=== PATIENT | male | born 1935 | race Caucasian/White ===

== ENCOUNTER → 2017-05-06 | Outpatient (CLI) | payer MEDICARE, OTHER ==
--- NOTE | 2017-05-06 12:51 | PCVCIMAG ---
APPROVED REPORT Exam: Stress Echocardiogram Indication: Aortic Valve Stenosis, Hypertension, Hyperlipidemia, Fam hx CAD Patient Location: Echo lab Stress Nurse: Tammy Canchola RN Status: routine Ht: 5 ft 11 in HR: 64 bpm BP: 130/82 mmHg Rhythm: NSR Procedure The patient underwent an Exercise Stress Test using the Edi Protocol. Blood pressure, heart rate, and EKG were monitored. An Echocardiogram was performed by machines technician in four stages in quad fashion. At peak stress, four selected images were obtained and placed side by side with resting images for comparison. Stress Test Details Stress Test: Exercise stress testing was performed using a Edi protocol. HR Resting HR: 64 bpmMax Heart Rate (APMHR): 140 bpm Max HR Achieved: 122 bpmTarget HR (85% APMHR): 119 bpm % of APMHR: 87 Recovery HR: 71 bpm HR response to stress: Normal HR response to stress BP Resting BP: 130/82 mmHg Max BP: 188/82 mmHg Recovery BP: 158/82 mmHg ECG Resting ECG: Sinus Rhythm Stress ECG: Sinus Rhythm Arrhythmia: Occasional isolated multi-focal PVCs Recovery ECG: Sinus Rhythm Recovery Arrhythmia: Occasional isolated PVCs Clinical Reason for Termination: Maximal effort Stress Symptoms: Dyspnea Exercise duration: 9 min 21 sec Highest Stage Achieved: Stage 4: 4.2 mph at 16% grade. Exercise capacity: 11.2 METs Overall Exercise Capacity for Age: Good Pre-Stress Echo The resting Echocardiogram showed normal left ventricular contractility with an estimated Ejection Fraction of about 50%. Normal wall motion in all segments on baseline images. Post-Stress Echo The stress Echocardiogram showed normal left ventricular contractility with an estimated Ejection Fraction of about 60%. Normal augmentation of wall motion in all segments on post stress images. Clinical No clinical or ECG evidence for ischemia. Conclusion Clinical Response: Non-ischemic Exercise Capacity: Superior Stress ECG Response: Non-ischemic Stress Echo Images: Non-ischemic Moderate aortic stenosis, unchanged from previous studies. Aortic valve area 1.0 cm2, with maximal pressure gradient 25 mmHg and mean gradient 14 mmHg. Moderate-severe aortic sclerosis present. Mild-moderate mitral regurgitation present. Other Information Study Quality: Adequate <Conclusion> Moderate aortic stenosis, unchanged from previous studies. Aortic valve area 1.0 cm2, with maximal pressure gradient 25 mmHg and mean gradient 14 mmHg. Moderate-severe aortic sclerosis present. Mild-moderate mitral regurgitation present.
== END | disposition home or self-care (01) ==
LOC: PCVCIMAG 10:02
PROVIDERS: ATTEND Internal Medicine Cardiovascular Disease
DX: I08.0 Rheumatic disorders of both mitral and aortic valves (principal); I25.10 Atherosclerotic heart disease of native coronary artery without angina pectoris; I10 Essential (primary) hypertension; E78.5 Hyperlipidemia, unspecified
CPT/HCPCS: 93325; 93351

== ENCOUNTER → 2018-03-10 | Outpatient (CLI) | payer MEDICARE | END | disposition home or self-care (01) | LOC: PCVCCLINIC 15:21 | PROVIDERS: ATTEND Internal Medicine Cardiovascular Disease | DX: M25.559 Pain in unspecified hip (principal); I35.0 Nonrheumatic aortic (valve) stenosis; I10 Essential (primary) hypertension; I77.9 Disorder of arteries and arterioles, unspecified; E78.00 Pure hypercholesterolemia, unspecified; F10.10 Alcohol abuse, uncomplicated; R94.31 Abnormal electrocardiogram [ECG] [EKG]; Z79.899 Other long term (current) drug therapy | CPT/HCPCS: 80061; 93005; G0463 ==

== ENCOUNTER → 2018-07-09 | Outpatient (CLI) | payer MEDICARE ==
--- NOTE | 2018-07-09 16:26 | PCVCIMAG ---
APPROVED REPORT Patient Location: Out-Patient Indications Stenosis Doppler Spectral Velocity Analysis PSV / EDVPSV / EDV ECA (R) 94 / 12 cm/sECA (L) 107 / 7 cm/s dICA (R) 52 / 15 cm/sdICA (L) 62 / 18 cm/s Jose Antonio (R) 52 / 10 cm/smICA (L) 67 / 16 cm/s pICA (R) 51 / 10 cm/spICA (L) 75 / 11 cm/s Bulb (R) 46 / 12 cm/sBulb (L) 68 / 11 cm/s dCCA (R) 76 / 8 cm/sdCCA (L) 69 / 10 cm/s mCCA (R) 73 / 9 cm/smCCA (L) 83 / 8 cm/s Vert (R) 76 / 5 cm/sVert (L) 55 / 12 cm/s ICA/CCA 0.68 ICA/CCA 1.09 Findings The right carotid bulb has moderate plaque. The right proximal internal carotid artery shows <40% stenosis. The right common carotid artery shows no significant stenosis. The right external carotid artery shows no significant stenosis. The left carotid bulb has moderate plaque. The left proximal internal carotid artery shows <40% stenosis. The left common carotid artery shows no significant stenosis. The left external carotid artery shows no significant stenosis. Conclusion 1. Right internal carotid artery stenosis (<40%) 2. Left internal carotid artery stenosis (<40%) 3. Antegrade vertebral flow
--- NOTE | 2018-07-09 16:28 | PCVCIMAG ---
APPROVED REPORT Study performed: 07/09/2018 14:57:41 EXAM: Comprehensive 2D, Doppler, and color-flow Echocardiogram Patient Location: Echo lab Status: routine BSA: 2.01 HR: 50 bpmBP: 150/72 mmHg Rhythm: Bradycardia Other Information Study Quality: Good Risk Factors: Cardiac Risk Factors: HTN, Hyperlipidemia Indications Aortic Valve Disease Hypertension/HDD 2D Dimensions IVSd: 13.93 (7-11mm)LVOT Diam: 20.73 (18-24mm) LVDd: 44.99 mm PWd: 11.70 (7-11mm)Ascending Ao: 37.58 (22-36mm) LVDs: 35.25 (25-40mm) Left Atrium: 41.16 (27-40mm) Aortic Root: 34.63 mm LV Single Plane 4CH: 56.78 % Volumes Left Atrial Volume (Systole) Single Plane 4CH: 63.80 mLSingle Plane 2CH: 78.57 mL LA ESV Index: 36.00 mL/m2 Aortic Valve AoV Peak Tobin.: 2.63 m/s AO Peak Gr.: 27.66 mmHgLVOT Max P.27 mmHg AO Mean Gr.: 15.77 mmHgLVOT Mean P.38 mmHg AO V2 Mean: 1.90 m/sLVOT Max V: 0.75 m/s AO V2 VTI: 65.20 cmLVOT Mean V: 0.56 m/s MARS (VTI): 1.08 [id number] V1 VTI: 20.94 cm MARS Vmax: 0.97 cm2 AI Vmax: 4.41 m/sSV (LVOT): 70.63 mL AI Mitchell: 1.93 m/s2 AI PHT: 663.20 ms Mitral Valve E/A Ratio: 0.7 MV Decel. Time: 393.54 ms MV E Max Tobin.: 0.69 m/s MV A Tobin.: 0.93 m/s IVRT: 124.57 ms TDI E/Lateral E': 11.50E/Medial E': 8.63 Medial E' Tobin.: 0.08 m/s Lateral E' Tobin.: 0.06 m/s Pulmonary Valve PV Peak Gr.: 1.13 mmHg Pulmonary Vein P Vein S: 0.41 m/sP Vein A: 0.34 m/s P Vein D: 0.47 m/sP Vein A Dur.: 131.5 msec P Vein S/D Ratio: 0.87 Tricuspid Valve TR Peak Tobin.: 2.93 m/s TR Peak Gr.: 34.23 mmHg Left Ventricle The left ventricle is normal size. There is normal LV segmental wall motion. Mild concentric left ventricular hypertrophy. Left ventricular systolic function is normal. The left ventricular ejection fraction is within the normal range. LVEF is >55%. The left ventricular diastolic function is normal. Right Ventricle The right ventricle is normal size. The right ventricular systolic function is normal. Atria Left atrium is mildly dilated. The right atrium size is normal. Aortic Valve Aortic valve is calcified. peak gradient is 28mmHg. Mean gradient is 18mmhg. Aortic valve area is 1.0cm2. Mild aortic regurgitation. There is no aortic valvular stenosis. Mitral Valve The mitral valve is normal in structure. Moderate mitral regurgitation. No evidence of mitral valve stenosis. Tricuspid Valve The tricuspid valve is normal in structure. Trace tricuspid regurgitation. Pulmonary artery pressure is 41mmHg. Pulmonic Valve The pulmonary valve is normal in structure. There is no pulmonic valvular regurgitation. Great Vessels The aortic root is normal in size. IVC is normal in size and collapses >50% with inspiration. Pericardium There is no pericardial effusion. <Conclusion> The left ventricle is normal size. Mild concentric left ventricular hypertrophy. LVEF is >55%. The left ventricular diastolic function is normal. The right ventricle is normal size. Left atrium is mildly dilated. Left atrium is mildly dilated. Aortic valve is calcified. peak gradient is 28mmHg. Mean gradient is 18mmhg. Aortic valve area is 1.0cm2. Mild aortic regurgitation. Mild aortic regurgitation. Moderate mitral regurgitation. Trace tricuspid regurgitation. Pulmonary artery pressure is 41mmHg. The aortic root is normal in size. There is no pericardial effusion.
== END | disposition home or self-care (01) ==
LOC: PCVCIMAG 14:08
PROVIDERS: ATTEND Internal Medicine
DX: I08.0 Rheumatic disorders of both mitral and aortic valves (principal); I65.23 Occlusion and stenosis of bilateral carotid arteries; I10 Essential (primary) hypertension; E78.5 Hyperlipidemia, unspecified; R06.02 Shortness of breath; G47.30 Sleep apnea, unspecified
CPT/HCPCS: 36415; 80061; 93005; 93306; 93880; G0463

== ENCOUNTER → 2019-01-15 | Outpatient (CLI) | payer MEDICARE | END | disposition home or self-care (01) | LOC: PCVCCLINIC 14:00 | PROVIDERS: ATTEND Internal Medicine Cardiovascular Disease | DX: I35.0 Nonrheumatic aortic (valve) stenosis (principal); E78.5 Hyperlipidemia, unspecified; I10 Essential (primary) hypertension; I65.23 Occlusion and stenosis of bilateral carotid arteries; R53.83 Other fatigue | CPT/HCPCS: 93005; G0463 ==

== ENCOUNTER → 2019-05-04 | Outpatient (CLI) | payer MEDICARE ==
--- NOTE | 2019-05-04 16:40 | PCVCIMAG ---
APPROVED REPORT Study performed: 05/04/2019 15:22:56 Exam: Stress Echocardiogram Indication: Hyperlipidemia, Hypertension, Aortic Stenosis Patient Location: Echo lab Stress Nurse: Tammy Canchola RN Status: routine Ht: 5 ft 9 in HR: 68 bpm BP: 132/74 mmHg Rhythm: NSR Medical History Medical History: Aortic Stenosis Exercise History: Physically active Procedure The patient underwent an Exercise Stress Test using the Edi Protocol. Blood pressure, heart rate, and EKG were monitored. An Echocardiogram was performed by health information systems technician in four stages in quad fashion. At peak stress, four selected images were obtained and placed side by side with resting images for comparison. Stress Test Details Stress Test: Exercise stress testing was performed using a Edi protocol. HR Resting HR: 68 bpmMax Heart Rate (APMHR): 138 bpm Max HR Achieved: 203 bpmTarget HR (85% APMHR): 117 bpm % of APMHR: 147 Recovery HR: 73 bpm HR response to stress: Normal HR response to stress BP Resting BP: 132/74 mmHg Max BP: 188/70 mmHg Recovery BP: 132/74 mmHg BP response to stress: Normal blood pressure response to stress. ECG Resting ECG: Sinus Rhythm Stress ECG: Sinus Rhythm ST Change: SVT Recovery ECG: SVT Recovery ST Change: SVT Clinical Reason for Termination: Maximal effort Exercise duration: 9 min 22 sec Highest Stage Achieved: Stage 4: 4.2 mph at 16% grade. Exercise capacity: 11.30 METs Overall Exercise Capacity for Age: Good Pre-Stress Echo The resting Echocardiogram showed normal left ventricular contractility with an estimated Ejection Fraction of about 55-60%. Normal wall motion in all segments on baseline images. Post-Stress Echo The stress Echocardiogram showed normal left ventricular contractility with an estimated Ejection Fraction of about 60-65%. Normal augmentation of wall motion in all segments on post stress images. Clinical No clinical or ECG evidence for ischemia. Conclusion Clinical Response: Non-ischemic Exercise Capacity: Superior Stress ECG Response: Non-ischemic Stress Echo Images: Non-ischemic The left ventricle is normal in size and wall thickness in both the rest and stress images. Peak aortic gradient 30mmHg. Mean gradient 19mmHg. Aortic valve area is 1.2cm2. Mild aortic insufficiency. Mild tricuspid and mitral regurgitation. Pulmonary artery pressure 37mmHg. <Conclusion> The left ventricle is normal in size and wall thickness in both the rest and stress images. Peak aortic gradient 30mmHg. Mean gradient 19mmHg. Aortic valve area is 1.2cm2. Mild aortic insufficiency. Mild tricuspid and mitral regurgitation. Pulmonary artery pressure 37mmHg.
== END | disposition home or self-care (01) ==
LOC: PCVCIMAG 15:01
PROVIDERS: ATTEND Internal Medicine Cardiovascular Disease
DX: I08.3 Combined rheumatic disorders of mitral, aortic and tricuspid valves (principal); I10 Essential (primary) hypertension; R53.83 Other fatigue; G47.33 Obstructive sleep apnea (adult) (pediatric); K21.9 Gastro-esophageal reflux disease without esophagitis; E78.5 Hyperlipidemia, unspecified; Z85.828 Personal history of other malignant neoplasm of skin; Z82.49 Family history of ischemic heart disease and other diseases of the circulatory system; Z80.9 Family history of malignant neoplasm, unspecified
CPT/HCPCS: 93325; 93351